=== PATIENT | male | born 1955 | race Caucasian/White ===

== ENCOUNTER 2025-05-10 13:55 | Outpatient (CLI) | payer MEDICARE | END 2025-05-10 13:56 | disposition home or self-care (01) | LOC: CSHULT 13:55 | PROVIDERS: ATTEND Internal Medicine | DX: E78.00 Pure hypercholesterolemia, unspecified (principal); R01.1 Cardiac murmur, unspecified; R94.31 Abnormal electrocardiogram [ECG] [EKG]; I34.0 Nonrheumatic mitral (valve) insufficiency; I77.810 Thoracic aortic ectasia | CPT/HCPCS: 93306 ==